=== PATIENT | male | born 1955 | race Caucasian/White ===

== ENCOUNTER 2016-05-06 21:11 | Emergency (ER) | payer SELFPAY ==
[~2016-05-06] VITALS: Ht 180.3 cm; Wt 120.0 kg
[2016-05-06 21:44] LABS: HEMATOCRIT 44.4 % (39.0-50.0); HEMOGLOBIN 15.4 g/dl (14.0-18.0); IMMATURE GRANULOCYTES 0.3 % (0.0-1.0); MEAN CELL VOLUME 89.3 fL CALC (80.0-100.0); MEAN CORPUSCULAR HGB CONC 34.7 g/L CALC (32.0-36.0); NEUT# 4.35 thou/uL (1.82-7.42); RED BLOOD COUNT 4.97 mill/uL (4.70-6.10); RED CELL DISTRI WIDTH 12.8 % (11.5-15.5)
[2016-05-06 22:06] LABS: ALKALINE PHOSPHATASE 67 u/l (38-126); AMYLASE 55 u/l (30-110); ANION GAP 17 (6-22 (CALC)); BILIRUBIN, TOTAL 0.4 mg/dL (0.0-1.4); BUN 13 mg/dL (9-20); BUN/CREATININE RATIO 14 (12-20 (CALC)); CALCIUM 9.3 mg/dL (8.4-10.2); CARBON DIOXIDE 24 mmol/l (22-30); CHLORIDE 101 mmol/l (95-108); CREATININE 0.9 mg/dL (0.7-1.3); GFR > 60 ML/MIN (>=60 (CALC)); GFR FOR AFR.AMER. > 60 ML/MIN (>=60 (CALC)); GLUCOSE 272 mg/dL (75-110); LIPASE 121 u/l (23-300); POTASSIUM 4.2 mmol/l (3.5-5.1); SGOT/AST 19 u/l (17-59); SGPT/ALT 36 u/l (21-72); SODIUM 138 mmol/l (137-146); TOTAL PROTEIN 7.1 g/dL (6.3-8.2)
[2016-05-06 22:07] LABS: ACT PARTIAL THROMBO TIME 25.8 SECONDS (20.0-32.5); PROTHROMBIN TIME 10.6 SECONDS (9.0-12.5)
[2016-05-06 22:17] LABS: MYOGLOBIN 73 ng/mL (0 - 121)
[2016-05-07 00:49] LABS: BARBITURATES NEGATIVE (NEGATIVE); COCAINE NEGATIVE (NEGATIVE); METHADONE NEGATIVE (NEGATIVE); OXCYCODONE NEGATIVE (NEGATIVE); TETRAHYDROCANNABIONOL NEGATIVE (NEGATIVE); TRICYLIC ANTIDEPRESSANTS NEGATIVE (NEGATIVE)
[2016-05-07 00:50] LABS: URINE BILIRUBIN - DIPSTICK NEGATIVE (NEGATIVE); URINE BLOOD DIPSTICK NEGATIVE (NEGATIVE); URINE CLARITY CLEAR; URINE COLOR YELLOW; URINE GLUCOSE - DIPSTICK >=1000 mg/dL (NEGATIVE); URINE KETONE NEGATIVE (NEGATIVE); URINE LEUK ESTERASE NEGATIVE (NEGATIVE); URINE NITRITE - DIPSTICK NEGATIVE (Negative); URINE PROTEIN - DIPSTICK NEGATIVE (NEG-TRACE); URINE UROBILINOGEN - DIPSTICK 0.2 E.U./dL (0.2)
[2016-05-07 03:10] VITALS: BP 148/76
== END 2016-05-07 03:11 | disposition short-term general hospital (02) | DRG 313 ==
LOC: ED 21:11 → ED-I 05-07 01:40 → ED 05-07 03:11
PROVIDERS: Emergency Medicine
DX: R07.9 Chest pain, unspecified (principal); E11.9 Type 2 diabetes mellitus without complications; R79.89 Other specified abnormal findings of blood chemistry

== ENCOUNTER 2020-11-20 13:20 | Emergency (ER) | payer SELFPAY ==
[~2020-11-20] VITALS: Ht 180.3 cm; Wt 111.0 kg
[2020-11-20] MEDS ORDERED: FUROSEMIDE20 MG PO (13:59)
[2020-11-20] MEDS ORDERED: METOPROL TAR25 MG PO (13:59)
[2020-11-20] MEDS ORDERED: DIGOXIN0.125 MG PO (14:00)
[2020-11-20] MEDS ORDERED: JARDIANCE10 MG PO (14:00)
[2020-11-20 14:02] LABS: HEMATOCRIT 49.1 % (39.0-50.0); HEMOGLOBIN 16.6 g/dl (14.0-18.0); IMMATURE GRANULOCYTES 0.2 % (0.0-5.0); MEAN CELL VOLUME 91.6 fL CALC (80.0-100.0); MEAN CORPUSCULAR HGB CONC 33.8 g/dL CAL (32.0-36.0); NEUT# 3.68 thou/uL (1.82-7.42); RED BLOOD COUNT 5.36 mill/uL (4.70-6.10); RED CELL DISTRI WIDTH 13.2 % (11.5-15.5)
[2020-11-20] MEDS ORDERED: ATORVASTATIN CA80 MG PO (14:02)
[2020-11-20] MEDS ORDERED: METFORMIN500 M2 PO (14:02)
[2020-11-20] MEDS ORDERED: HUMALOG KW75 MG/25 K SC (14:03)
[2020-11-20 14:04] LABS: GFR > 60 ML/MIN (>=60 (CALC)); GFR FOR AFR.AMER. > 60 ML/MIN (>=60 (CALC))
[2020-11-20 14:15] LABS: D-DIMER 0.45 mg/L (0.19-0.60)
[2020-11-20 14:17] LABS: ALBUMIN 4.4 g/dL (3.2-5.0); ALKALINE PHOSPHATASE 62 u/l (38-126); BUN 16 mg/dL (8-23); BUN/CREATININE RATIO 20 (12-20 (CALC)); CARBON DIOXIDE 20 mmol/l (22-30); CHLORIDE 95 mmol/l (95-108); CREATININE 0.8 mg/dL (0.7-1.3); GFR > 60 ML/MIN (>=60 (CALC)); GFR FOR AFR.AMER. > 60 ML/MIN (>=60 (CALC)); MAGNESIUM 1.6 mg/dL (1.6-2.3); TOTAL PROTEIN 8.1 g/dL (6.3-8.2)
[2020-11-20 14:18] LABS: ACT PARTIAL THROMBO TIME 25.2 SECONDS (20.0-32.5); ANION GAP 18 (6-22 (CALC)); BILIRUBIN, TOTAL 0.8 mg/dL (0.0-1.4); PROTHROMBIN TIME 10.2 SECONDS (9.0-12.5); SGOT/AST 35 u/l (19-48); SODIUM 129 mmol/l (137-146)
[2020-11-20 14:22] LABS: URINE BILIRUBIN - DIPSTICK NEGATIVE (NEGATIVE); URINE BLOOD DIPSTICK MODERATE (NEGATIVE); URINE COLOR YELLOW; URINE GLUCOSE - DIPSTICK >=1000 mg/dL (NEGATIVE); URINE KETONE 15 mg/dL (NEGATIVE); URINE LEUK ESTERASE NEGATIVE (NEGATIVE); URINE PH 5.5 (4.5-8.0); URINE PROTEIN - DIPSTICK 100 mg/dL (NEG-TRACE); URINE SPECIFIC GRAVITY 1.025; URINE UROBILINOGEN - DIPSTICK 0.2 E.U./dL (0.2)
[2020-11-20 14:23] LABS: URINE NITRITE - DIPSTICK NEGATIVE (Negative)
[2020-11-20 14:27] LABS: MYOGLOBIN 227 ng/mL (0 - 121)
[2020-11-20 14:30] LABS: URINE MUCUS RARE hpf (NONE-FEW); URINE RBC 0-2 RBC/hpf (0-5)
[2020-11-20] MEDS ORDERED: DECADRON6 MG PO (15:39)
[2020-11-20] MEDS ORDERED: PROVENTIL HFA IN (15:39)
[2020-11-20] MEDS ORDERED: DOXYCYCLINE100 MG PO (15:39)
[2020-11-20 15:42] VITALS: BP 142/80
== END 2020-11-20 16:10 | disposition home or self-care (01) | DRG 871 ==
LOC: ED 13:20
PROVIDERS: Family Medicine
DX: A41.89 Other specified sepsis (principal); U07.1 COVID-19; J12.82 Pneumonia due to coronavirus disease 2019; J10.1 Influenza due to other identified influenza virus with other respiratory manifestations; E11.65 Type 2 diabetes mellitus with hyperglycemia; I10 Essential (primary) hypertension; Z95.1 Presence of aortocoronary bypass graft; Z79.4 Long term (current) use of insulin
CPT/HCPCS: Q9967